=== PATIENT | female | born 1945 | race Caucasian/White ===

== ENCOUNTER → 2016-05-11 | Outpatient (CLI) | payer OTHER ==
[~2016-05-11] MED LIST: ALPR-411 PO; ASPEC81 PO; ATEN50TA8 PO; CRS10 PO; CYCL10TA6 PO; EFFSR150 PO; EYE VITAMIN PO; IRON SUPPLEMENT PO; LEVO1TAB33 PO; MULT-506 PO; OMEG10007 PO; PRAM1TAB52 PO; PRCUNK PO; STLS; VENL150C PO; VENL75CA PO; VITAMIN D PO; [UNRECOGNIZED DRUG - MIXTURE] PO; [UNRECOGNIZED DRUG - OTHER] PO
== END | disposition home or self-care (01) ==
LOC: C.RDSM 16:40
PROVIDERS: ATTEND Physical Medicine & Rehabilitation Sports Medicine
DX: G56.01 Carpal tunnel syndrome, right upper limb (principal)

== ENCOUNTER → 2016-05-21 | Outpatient (CLI) | payer OTHER ==
[~2016-05-21] MED LIST changes: -ALPR-411 PO; -ASPEC81 PO; -CRS10 PO; -EFFSR150 PO; -EYE VITAMIN PO; -IRON SUPPLEMENT PO; -MULT-506 PO; -OMEG10007 PO; -PRCUNK PO; -STLS
--- NOTE | 2016-05-21 14:45 | DIAGNOSTIC IMAGING REPORT ---
CHEST 2 VIEWS ROUTINE CLINICAL HISTORY: PRE OP TESTING COMPARISON STUDY: 09/12/2008 FINDINGS: The bones soft tissues and hemidiaphragms are normal. The cardiomediastinal silhouette is normal. The lungs are clear. The pulmonary vasculature is normal. IMPRESSION: Negative chest. Electronically signed by: Teodoro Newsome M.D. 05/21/2016 2:43 PM Dictated Date/Time: 05/21/2016 2:43 PM
== END | disposition home or self-care (01) ==
LOC: C.RDSM 14:15
PROVIDERS: ATTEND Physical Medicine & Rehabilitation Sports Medicine
DX: Z01.811 Encounter for preprocedural respiratory examination (principal)

== ENCOUNTER → 2016-06-09 | Day surgery (SDC) | payer OTHER ==
[2016-05-19 13:41] VITALS: Ht 154.9 cm; Wt 81.8 kg
[~2016-06-09] VITALS: Ht 154.9 cm; Wt 81.8 kg
[~2016-06-09] MED LIST changes: +ATROPINE SULFATE 0.1 MG/ML 5ML SYR IV PRN; +BUPIVACAINE 0.5 % 5 MG/1 ML MPF 30ML VIAL ONE; +CEFAZOLIN 2000 MG/60 ML D5W IV SCH; +DEXAMETHASONE SOD INJ 4 MG/ML VIAL IV PRN; +DEXAMETHASONE SOD INJ 4 MG/ML VIAL ONE; +EpHEDrine SULFATE 50MG/5ML SYR ONE; +EpHEDrine SULFATE INJ 50 MG/ML AMP IV PRN; +FENTANYL CITRATE INJ 50 MCG/1 ML 2 ML VIAL IV PRN; +FENTANYL CITRATE INJ 50 MCG/1 ML 2 ML VIAL ONE; +GLYCOPYRROLATE INJ 0.2 MG/ML VIAL ONE; +KETOROLAC TROMETHAMINE 30 MG/ML VIAL IV. PRN; +LABETALOL HCL IV 5 MG/ML 20ML IV PRN; +LACTATED RINGER'S 1000ML 1,000 ML IV SCH; +LIDO 2%/EPINEPHRINE 1:100000 20 ML VIAL INFIL ONE; +LIDOCAINE HCL 1% MPF 2 ML VIAL ONE; +LIDOCAINE HCL 2% 2 ML VIAL (20MG/ML) ONE; +LIDOCAINE HCL 2% LOCAL 20 ML VIAL ONE; +METOCLOPRAMIDE HCL INJ 5 MG/ML 2 ML VIAL IV PRN; +MIDAZOLAM HCL 1 MG/ML 2ML VIAL ONE; +MoRPHine SULFATE 10 MG/ML CARP/VIAL IV PRN; +ONDANSETRON INJ 2 MG/ML 2 ML VIAL IV PRN; +ONDANSETRON INJ 2 MG/ML 2 ML VIAL ONE; +PHENYLEPHRINE 100MCG/ML 5ML SYR IV PRN; +PROPOFOL IV EMULSION 10 MG/ML 20 ML VIAL IV ONE; +ROPIVACAINE 0.5% 5 MG/ML 30 ML VIAL ONE; +SODIUM CHLORIDE 0.9% 1000ML 1,000 ML IV SCH
--- NOTE | 2016-06-09 06:51 | History & Physical Bridge Note ---
H&P Re-Evaluation Bridge Note: I have examined the patient, reviewed the History & Physical and in the interval since the performance of the History & Physical I have noted the following changes of clinical significance: No changes noted
--- NOTE | 2016-06-09 06:53 | Discharge Instructions ---
Discharge Instructions Date of Service Jun 09, 2016. Visit Reason for Visit: Right Forearm/Wrist Median Nerve Compression Discharge Discharge Diagnosis / Problem: same Discharge Goals Goal(s): Decrease discomfort, Improve function Medications Stopped Medications Name(s): na Restart Stopped Medication(s): use all scripts as directed Activity Recommendations Activity Limitations: as noted below Lifting Limitations: until after follow-up appointment Exercise/Sports Limitations: until after follow-up appointment May Resume Sexual Activity: when tolerated Shower/Bathe: keep incision dry Driving or Machine Use: resume 3 days after discharge Anesthesia . Post Anesthesia Instructions: If you have had General Anesthesia or IV Sedation: * Do not drive today. * Resume driving when surgeon permits. * Do not make important decisions or sign legal documents today. * Call surgeon for: 1. Temperature elevations greater than 101 degrees F. 2. Uncontrollable pain. 3. Excessive bleeding. 4. Persistent nausea and vomiting. 5. Medication intolerance (nausea, vomiting or rash). * For nausea and vomiting use only clear liquids such as: tea, soda, bouillon until nausea subsides, then gradually increase diet as tolerated. * If you have any concerns or questions, call your surgeon's office. If physician is unavailable and it is an emergency, call 911 or go to the nearest emergency room. . Instructions / Follow-Up Instructions / Follow-Up The following are instructions to follow after minor hand surgery. ACTIVITY RECOMMENDATIONS: * Minimize activity until your first visit after surgery. * No excessive walking, jogging, sports or laboring. * Return to activity is individualized. Most patients are able to return to everyday activities within 2 weeks. * Return to sports or intensive labor usually occurs at 1-2 months. * DRIVING: Driving may be resumed when you feel you have adequate pain control and use of the hand. * BATHING: You may shower or sponge-bathe immediately after surgery. The dressing will need to be covered with a plastic bag or plastic wrap until the dressing is changed on the fourth or fifth day after surgery. Once the dressing has been changed on the fourth or fifth day after surgery, you may shower and get the incision wet. * Wash with regular soap and water. * Do not bathe (submerge the incision), soak, swim or use a hot tub until the incision is completely healed over with normal skin and the doctor has given the OK to proceed. * There is no need to apply any ointments, powders or salves to your incision. * Do not apply alcohol or hydrogen peroxide directly to the incision. Diluted peroxide (50:50 mixture with sterile saline) may be used to clean dried blood from around the incision area. WORK/SCHOOL: * You may return to sedentary work or school when you are feeling comfortable. This is usually 3-7 days after surgery. * Expect increased discomfort with increased activity. Continue to elevate and ice the hand as much as possible. DIET: * Resume previous diet. MEDICATIONS: * You will have a prescription for pain medication and an anti-inflammatory medication after surgery. Use the pain pills for severe pain and the anti-inflammatory for less severe pain. * Once the pain pills have run out, try to use the anti-inflammatory. If this is not effective then contact the office for assistance. * The pain medication may cause nausea, constipation and sleepiness. You should see how they affect you before driving or similar activity. * The anti-inflammatory may cause stomach upset and bleeding. If this occurs, let your doctor know immediately . * Some patients may need blood clot prevention. This can be done with either a pill or a simple shot. Your doctor will advise you on when to begin these medications and how to take them. * Do not take aspirin or other anti-inflammatory products (i.e. Advil or Aleve ) if taking blood thinner medication. * Take a stool softener like Colace or a stimulant like Senokot to prevent constipation. SPECIAL CARE INSTRUCTIONS: ICE: * Do not apply ice directly to the skin. * Use a thin dressing or stockinet between the skin and ice bag. The dressing in place after surgery will suffice. * Apply ice for 20-30 minutes and repeat every 2-4 hours. This is especially important for the first 3-7 days after surgery. * Once the pain improves, use ice as needed. ELEVATION: * Keep your hand elevated at or above the level of your heart as much as possible. * Expect some increased discomfort and swelling if you allow your hand to hang down for any length of time. DRESSING: * Your dressing will be changed 4-5 days after surgery by the physical therapist or physician's assistant hvac mechanic. Leave your dressing intact until this time. * You may then change your dressing daily with clean dry gauze or Band-aids and a soft wrap or stockinet. * Always wash your hands prior to touching the incision area. * Once the stitches are removed, you may leave the wound open to air or cover with a thin bandage. * There is no need to apply any ointments, powders or salves to your incision. * Expect some bloody drainage for the first few days after surgery. * Leave the tape strips in place (if present) for 5-7 days. * The initial dressing after surgery may become soaked with blood or fluid which is normal. You may reinforce your dressing with clean, dry gauze as needed. BRACE: * Bracing is generally not needed after routine hand surgery. THERAPY: * Physical therapy may be prescribed after your surgery. * For carpal tunnel and trigger digit surgery you may begin moving your fingers and wrist immediately after surgery as tolerated. * Be careful to not overuse. * Once the sutures are removed, further range of motion exercises can be performed. * Hand incisions may be very sensitive for a few months after surgery so avoid excessive pressure on the incision. If necessary, use a padded weightlifters' glove. * You may massage the incision with skin cream to make it less sensitive and reduce scarring. * Hand strength usually returns with normal use. * If needed, squeezing a soft sponge or Play-dough may help. * Your doctor will recommend physical therapy if necessary. PROBLEMS/QUESTIONS: * If you have any problems such as severe pain, numbness, tingling or high fevers or if you have any questions, please contact the office at [phone]. * It is not uncommon to have some numbness and tingling after the surgery especially if you have had a nerve block done. This should gradually improve over the first 1- 2 days. If this persists longer or worsens then contact the office. FOLLOW UP VISIT: * If not already scheduled, please call the office at to schedule follow-up appointments for approximately 10 days, 6 weeks and 3 months after surgery. Diet Recommendations Recommended Home Diet: resume previous diet Procedures Procedures Performed: median nerve decompression right upper extremity forearm/wrist Pending Studies Studies pending at discharge: no Medical Emergencies . Who to Call and When: Medical Emergencies: If at any time you feel your situation is an emergency, please call 911 immediately. . Non-Emergent Contact Non-Emergency issues call your: Specialist Call Non-Emergent contact if: temperature is above 101.5 . . "Provider Documentation" section prepared by Jesus Rao.
--- NOTE | 2016-06-09 09:54 | [facility] Post Operative Brief Note ---
Immediate Operative Summary Operative Date Jun 09, 2016. Pre-Operative Diagnosis Right Forearm/Wrist Open Median Nerve Compression Post-Operative Diagnosis Same Procedure(s) Performed Right Forearm/Wrist Open Median Nerve Decompression, Carpal Tunnel Release Surgeon Dr Rao Filter Press Tender Head Surgeon(s) Karen Valdez PA-C Estimated Blood Loss Trace Findings nerve entrapment see op note Fluids (cc crystalloids) 1000cc Specimens None Drains none Anesthesia LMA Complication(s) None Disposition Recovery Room / PACU
--- NOTE | 2016-06-09 10:06 | OPERATIVE REPORT ---
DATE OF OPERATION: 06/09/2016 PREOPERATIVE DIAGNOSIS: Median nerve entrapment syndrome, right forearm and wrist, right upper extremity. POSTOPERATIVE DIAGNOSIS: Same. OPERATION PERFORMED: Extensive decompression of the median nerve including the pronator teres deep and superficial head and the sublimis tendon as well as the carpal tunnel on the right upper extremity. SURGEON: Dr. Rao. LAUNDROMAT MANAGER: Jose Valdez PA-C. No resident or fellow available. PERIOPERATIVE SITUATION: Medically cleared female with intractable numbness, tingling, weakening of the upper extremity with EMG nerve conduction revealing entrapment both on the forearm up at the pronator teres as well as the wrist. She does have a history of wrist injury and wrist fusion. PROCEDURE: The patient appropriately identified, site verified, consent verified, 2 grams of Ancef confirmed as being given. The right upper extremity was prepped and draped in usual routine fashion. Tourniquet inflated to 250 mmHg after exsanguination of limb with a rubber Esmarch bandage for a total of 55 minutes. A curvilinear incision was made proximally in the forearm, full thickness flaps raised, care taken to protect the cutaneous nerves. A brachial artery was identified as well as the median nerve just above the elbow was then dissected down to this and then the lacertus fibrosis released. This was then dissected down into the pronator and the pronator deep head then released, the long head was then Z lengthened and then repaired with 0 Vicryl. The nerve was then tracked down into the sublimis arcade and this was released. Good decompression was obtained. The anterior interosseous nerve was seen coming off the radial side of the median nerve and was visible for approximately 4-5 cm. This indicated total length of decompression of the nerve. There were multiple vascular leashes that were clipped proximally as well. This really decompressed the nerve nicely. This wound was then irrigated. Tourniquet was deflated. At the end of the case there was no bleeding, it was closed with 2-0 subcutaneous Vicryl and running nylon 3-0 stitch. The carpal tunnel was then released through a standard incision. Sharp dissection carried through skin and blunt dissection down to the fascia. This was then incised under direct vision. The transverse carpal ligament identified and released from approximately 1.5 cm proximal hook of the hamate to the superficial palmar arch. Good decompression obtained. The floor of the carpal canal had no masses. This wound was irrigated and closed with horizontal 3-0 nylon mattresses and Dermabond. The wounds were then dressed with Xeroform bulky dressing, Mika bandage and Coban. The patient was then transferred to recovery room in satisfactory condition having tolerated the procedure well. Estimated blood loss was trace, 1,000 mL of fluid. I attest to the content of the Intraoperative Record and any orders documented therein. Any exceptions are noted below. MTDD
[2016-06-09 11:03] VITALS: TEMP 36.7
[2016-06-09 11:22] VITALS: BP 137/74; O2SAT 94
--- NOTE | 2016-06-09 11:31 | Anesthesia Progress Nt - [facility] ---
Anesthesia Post Op Note Date & Time Jun 09, 2016 at 11:31 Vital Signs Pain Intensity: 5 Vital Signs Past 12 Hours Date Time Temp Pulse Resp B/P Pulse Ox O2 Delivery O2 Flow Rate FiO2 06/09/16 11:22 78 18 137/74 94 Room Air 06/09/16 11:03 36.7 72 20 156/81 93 Room Air 06/09/16 10:47 77 16 95 06/09/16 10:47 75 16 06/09/16 10:47 36.6 06/09/16 10:44 148/83 06/09/16 10:42 75 16 06/09/16 10:42 75 16 94 06/09/16 10:39 147/89 06/09/16 10:37 77 15 97 06/09/16 10:37 77 15 06/09/16 10:35 143/77 06/09/16 10:32 78 15 06/09/16 10:32 77 15 88 06/09/16 10:29 150/95 06/09/16 10:27 78 14 06/09/16 10:27 79 14 92 06/09/16 10:24 132/88 06/09/16 10:22 78 14 06/09/16 10:22 80 14 92 06/09/16 10:19 152/87 06/09/16 10:17 82 20 99 06/09/16 10:17 83 20 06/09/16 10:14 156/93 06/09/16 10:12 89 18 96 06/09/16 10:12 88 18 06/09/16 10:09 160/95 06/09/16 10:07 85 16 99 06/09/16 10:07 86 16 06/09/16 10:04 149/91 06/09/16 10:02 86 16 98 06/09/16 10:02 86 16 06/09/16 09:59 157/90 06/09/16 09:57 84 27 06/09/16 09:57 83 27 99 06/09/16 09:56 37.3 83 16 141/92 97 Diffusion Mask 6 06/09/16 07:05 36.4 62 20 139/79 99 Room Air Notes Mental Status: alert / awake / arousable, participated in evaluation Pt Amnestic to Procedure: Yes Nausea / Vomiting: adequately controlled Pain: adequately controlled Airway Patency, RR, SpO2: stable & adequate BP & HR: stable & adequate Hydration State: stable & adequate Anesthetic Complications: no major complications apparent
--- NOTE | 2016-06-09 14:36 | OPERATIVE REPORT ---
DATE OF OPERATION: 06/09/2016 PREOPERATIVE DIAGNOSIS: Right forearm and wrist median nerve entrapment. POSTOPERATIVE DIAGNOSIS: Right forearm and wrist, same. PROCEDURE: Right forearm and wrist decompression of the median nerve of the forearm as well as carpal tunnel. SURGEON: Dr. Rao. JEWEL STRIPPER: Jose Valdez PA-C. HISTORY OF PRESENT ILLNESS: This 71-year-old white female presented to the office with complaints of intractable numbness and tingling in the right forearm and wrist. EMG was obtained, confirming entrapment at the forearm as well as the wrist. She elected to proceed with surgical intervention after being educated about potential risks and outcomes. OPERATION: The patient was taken to the operating room, where she was given general anesthesia. She was prepped and draped in the usual sterile fashion. Please see Dr. Rao's operative report for specifics of the procedure. I was present for the entire case from initial patient positioning through final wound closure. Assistance was provided in tissue retraction, hemostasis, and final wound closure. The patient was taken to the recovery room in satisfactory condition. I attest to the content of the Intraoperative Record and any orders documented therein. Any exceptio ns are noted below.
== END | disposition home or self-care (01) ==
LOC: X.SURG 06:49
PROVIDERS: ATTEND Physical Medicine & Rehabilitation Sports Medicine
DX: G56.01 Carpal tunnel syndrome, right upper limb (principal); I34.1 Nonrheumatic mitral (valve) prolapse; J43.9 Emphysema, unspecified; M19.90 Unspecified osteoarthritis, unspecified site; K21.9 Gastro-esophageal reflux disease without esophagitis; F32.9 Major depressive disorder, single episode, unspecified; K44.9 Diaphragmatic hernia without obstruction or gangrene; M54.12 Radiculopathy, cervical region; G25.81 Restless legs syndrome; Z90.49 Acquired absence of other specified parts of digestive tract; Z96.659 Presence of unspecified artificial knee joint

== ENCOUNTER → 2017-02-25 | Outpatient (CLI) | payer OTHER ==
[~2017-02-25] MED LIST changes: -ATROPINE SULFATE 0.1 MG/ML 5ML SYR IV PRN; -BUPIVACAINE 0.5 % 5 MG/1 ML MPF 30ML VIAL ONE; -CEFAZOLIN 2000 MG/60 ML D5W IV SCH; -DEXAMETHASONE SOD INJ 4 MG/ML VIAL IV PRN; -DEXAMETHASONE SOD INJ 4 MG/ML VIAL ONE; -EpHEDrine SULFATE 50MG/5ML SYR ONE; -EpHEDrine SULFATE INJ 50 MG/ML AMP IV PRN; -FENTANYL CITRATE INJ 50 MCG/1 ML 2 ML VIAL IV PRN; -FENTANYL CITRATE INJ 50 MCG/1 ML 2 ML VIAL ONE; -GLYCOPYRROLATE INJ 0.2 MG/ML VIAL ONE; -KETOROLAC TROMETHAMINE 30 MG/ML VIAL IV. PRN; -LABETALOL HCL IV 5 MG/ML 20ML IV PRN; -LACTATED RINGER'S 1000ML 1,000 ML IV SCH; -LEVO1TAB33 PO; -LIDO 2%/EPINEPHRINE 1:100000 20 ML VIAL INFIL ONE; -LIDOCAINE HCL 1% MPF 2 ML VIAL ONE; -LIDOCAINE HCL 2% 2 ML VIAL (20MG/ML) ONE; -LIDOCAINE HCL 2% LOCAL 20 ML VIAL ONE; -METOCLOPRAMIDE HCL INJ 5 MG/ML 2 ML VIAL IV PRN; -MIDAZOLAM HCL 1 MG/ML 2ML VIAL ONE; -MoRPHine SULFATE 10 MG/ML CARP/VIAL IV PRN; -ONDANSETRON INJ 2 MG/ML 2 ML VIAL IV PRN; -ONDANSETRON INJ 2 MG/ML 2 ML VIAL ONE; -PHENYLEPHRINE 100MCG/ML 5ML SYR IV PRN; -PROPOFOL IV EMULSION 10 MG/ML 20 ML VIAL IV ONE; -ROPIVACAINE 0.5% 5 MG/ML 30 ML VIAL ONE; -SODIUM CHLORIDE 0.9% 1000ML 1,000 ML IV SCH
--- NOTE | 2017-02-25 14:59 | DIAGNOSTIC IMAGING REPORT ---
BILATERAL KNEES 4 VIEWS INCLUDING BILATERAL STANDING AP VIEWS AND BILATERAL SUNRISE VIEWS CLINICAL HISTORY: Bilateral knee pain COMPARISON STUDY: No previous studies for comparison. FINDINGS: On the right, there are postsurgical changes of a total right knee arthroplasty and patellar resurfacing. There are no acute fractures. There is no periprosthetic lucency. On the left, there are advanced osteoarthritic changes with near total cartilaginous loss medially. There are medial osteophytes. There are dorsal patellar spurs. There are no acute fractures. There is no erosive disease. IMPRESSION: 1. No acute fractures 2. Postsurgical changes of a total right knee arthroplasty 3. Advanced osteoarthritic changes within the left knee Electronically signed by: Min Rosenbaum M.D. 02/25/2017 2:58 PM Dictated Date/Time: 02/25/2017 2:56 PM
== END | disposition home or self-care (01) ==
LOC: C.RDSM 12:50
PROVIDERS: ATTEND Physician Assistant
DX: M17.12 Unilateral primary osteoarthritis, left knee (principal); Z98.890 Other specified postprocedural states

== ENCOUNTER 2018-06-08 07:11 | Inpatient (IN) ==
--- NOTE | 2018-05-13 15:49 | PAT Medication Instructions ---
Medication Instructions Date of Service May 13, 2018 Home Medications atenolol 25 mg PO DAILY atorvastatin 20 mg PO DAILY cholecalciferol (vitamin D3) 1,000 unit PO DAILY cyclobenzaprine 10 mg PO DAILY PRN levothyroxine 50 mcg PO QAM magnesium 250 mg PO DAILY pantoprazole [Protonix] 40 mg PO DAILY PRN pramipexole [Mirapex] 0.125 mg PO HS trazodone 50 mg PO HS venlafaxine [Effexor XR] 225 mg PO QAM STOP taking 24 hours before surgery venlafaxine [Effexor XR] 225 mg PO QAM DO NOT take the morning of surgery cholecalciferol (vitamin D3) 1,000 unit PO DAILY cyclobenzaprine 10 mg PO DAILY PRN magnesium 250 mg PO DAILY Take morning of surgery With a small sip of water, OTHERWISE NOTHING TO EAT OR DRINK AFTER MIDNIGHT: atenolol 25 mg PO DAILY atorvastatin 20 mg PO DAILY levothyroxine 50 mcg PO QAM pantoprazole [Protonix] 40 mg PO DAILY PRN (if needed) venlafaxine [Effexor XR] 225 mg PO QAM Take evening before surgery cyclobenzaprine 10 mg PO DAILY PRN (if needed) pantoprazole [Protonix] 40 mg PO DAILY PRN (if needed) trazodone 50 mg PO HS Other Notes If you have any questions please call us at [phone] or [phone] or [phone] or [phone]
--- NOTE | 2018-05-16 11:44 | Anesthesiology Consultation ---
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 Patient "asymptomatic." Evidence of remote hemorrhage. Recommend repeating MRI prior to surgery. 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 "Elective surgery and general anesthesia are NOT known to increase the risk of rupture.. the risk of clarence-operative rupture is very low so knee replacement surgery and clarence-opreative anti-coagulation can be pursued with low overall risk of neurological morbidity." - PCP= 05/26/18= is patient medically cleared for surgery-- "YES" - Cardio= 06/02/18= "low cardiac risk for knee replacement." Chart Review Chart Review: Acceptable Risk for Surgery and Patient seen in Pre Admission Testing Teaching & Discussion Pre-Anesthesia Teaching/Discussion Notes: Instructed NPO after midnight before surgery,except medications with 15 cc of water. Medication instructions provided according to the PAT guidelines. History Surgery Operation Date: 06/08/18 10:40 Proposed Procedures p Left Total Knee Arthroplasty - Jesus Rao MD Height/Weight Height: 5 ft 2 in Weight: 83.5 kg Allergies Allergy/AdvReac Type Severity Reaction Status Date / Time tetracycline Allergy Intermediate RASH Verified 05/09/18 08:47 aspirin Allergy Unknown CANNOT Verified 05/09/18 08:47 TAKE DUE TO CAVERNOMA bethanechol AdvReac Intermediate PROFUSE Verified 05/09/18 08:47 SWEATING paroxetine AdvReac Mild GI UPSET Verified 05/09/18 08:47 propoxyphene AdvReac Unknown TACHYCARDIA Verified 05/09/18 08:47 sertraline AdvReac Unknown SLEEPLESSNE Verified 05/09/18 08:47 SS Medications Home Medications Medication Instructions Recorded Confirmed Last Taken atenolol 25 mg PO DAILY 05/09/18 05/09/18 Unknown atorvastatin 20 mg PO DAILY 05/09/18 05/09/18 Unknown cholecalciferol (vitamin D3) 1,000 unit PO DAILY 05/09/18 05/09/18 Unknown [Vitamin D3] cyclobenzaprine 10 mg PO DAILY PRN 05/09/18 05/09/18 Unknown levothyroxine 50 mcg PO QAM 05/09/18 05/09/18 Unknown magnesium 250 mg PO DAILY 05/09/18 05/09/18 Unknown pantoprazole [Protonix] 40 mg PO DAILY PRN 05/09/18 05/09/18 Unknown pramipexole [Mirapex] 0.125 mg PO HS 05/09/18 05/09/18 Unknown trazodone 50 mg PO HS 05/09/18 05/09/18 Unknown venlafaxine [Effexor XR] 225 mg PO QAM 05/09/18 05/09/18 Unknown Past Medical History Medical History Anxiety COPD (chronic obstructive pulmonary disease) STABLE Cavernoma ARTERIOVENOUS CAVERNOMA- FOLLOWS WITH NEURO (LEENA) Depression GERD (gastroesophageal reflux disease) CONTROLLED High cholesterol Hypertension Macular degeneration Mitral valve prolapse REMOTE DX PER PATIENT; NO RECENT ECHO Obesity Osteoarthritis Restless leg syndrome Urinary incontinence Past Family History Family History Sister Family history of diabetes mellitus Past Surgical History Surgical History Hx of decompression of ulnar nerve RIGHT Hx of exploratory laparotomy Hx of hand surgery LEFT Hx of hernia repair Hx of total knee replacement RIGHT Past Anesthesia History No Hx of Anesthesia Complications (EXCEPT PONV X 1 EPISODE) and No Family Hx of Anesthesia Complications History of PONV Yes (X1 EPISODE) Motion Sickness Screening History of Motion Sickness: No Social History Smoking Status: Never smoker Do You Dip or Chew Tobacco: No Hx Alcohol Use: No Hx Substance Use: No Exercise / Class Metabolic Activity III < 4 Walking/Shop/Light housework Review of Systems Chronic cough "stable." Patient denies chest pain, shortness of breath, wheezing, palpitations. Physical Exam Vital Signs VITALS BP 135/83 P 65 TEMP 98.6 SP02 95%RA RESP 18 PHYSICAL Full neck and c-spine range of motion. Full TMJ range of motion. TMD 3.5 finger breaths Mallampati Score 3 Dentition: partial upper Lungs: clear throughout to auscultation Cardiac: regular rate and rhythm, no murmurs noted Spine: normal Carotid arteries: negative bruit Extremities: no edema Short neck* Testing Electrocardiogram Date: 05/16/[address]/TWA, consider anterolateral ischemia (no significant change compared to 09/2017 S EKG; lateral leads now appear nonspecific TWA)- similar findings on 2008 [facility] EKG; subsequent stress test done 06/20/13. Chest X-Ray Date: 05/16/18 Findings: + NAD Small hiatal hernia. No acute process. Stress Test Date: 06/20/13 Type: nuclear (LEXISCAN) No reversible defect noted to suggest ischemia. Stress EKG uninterpretable due to baseline abnormalities. EF 69%. 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 Mild cerebral vollume loss, may be sequela of chronic microvascular ischemia. Laboratory Results 05/16/18 12:02 05/16/18 12:02 Blood Type A Positive 05/16/18 12:02 Antibody Screen NEGATIVE 05/16/18 12:02 PT 10.6 Seconds (9.0-12.0) 05/16/18 12:02 INR 1.0 (0.9-1.1) 05/16/18 12:02 APTT 27.4 Seconds (21.0-31.0) 05/16/18 12:02 Urine Color Yellow 05/16/18 12:02 Urine Appearance Clear (Clear) 05/16/18 12:02 Urine pH 6.5 (4.5-7.5) 05/16/18 12:02 Ur Specific [place] 1.016 (1.000-1.030) 05/16/18 12:02 Urine Protein Negative (Negative) 05/16/18 12:02 Urine Glucose (UA) Negative (Negative) 05/16/18 12:02 Urine Ketones Negative (Negative) 05/16/18 12:02 Urine Nitrite Negative (Negative) 05/16/18 12:02 Ur Leukocyte Esterase Trace (Negative) H 05/16/18 12:02 Urine WBC (Auto) 1-5 /hpf (0-5) 05/16/18 12:02 Urine RBC (Auto) 5-10 /hpf (0-4) H 05/16/18 12:02 U Hyaline Cast (Auto) 0 /lpf (0-5) 05/16/18 12:02 U Epithel Cells (Auto) 10-20 /lpf (0-5) H 05/16/18 12:02 Urine Bacteria (Auto) Negative (Negative) 05/16/18 12:02
--- NOTE | 2018-05-16 12:32 | XRay Report ---
XR chest Pre-admission PA/Lat CLINICAL HISTORY: pat preoperative evaluation COMPARISON STUDY: No previous studies for comparison. FINDINGS: Small hiatal hernia. Diaphragms are smooth. Lungs are clear. IMPRESSION: Small hiatal hernia. No acute process. The above report was generated using voice recognition software. It may contain grammatical, syntax or spelling errors. Electronically signed by: Teodoro Newsome M.D. 05/16/2018 12:31 PM
[2018-05-16 13:04] LABS: Basophils # (auto) 0.03 K/uL (0-0.2); Basophils % (auto) 0.6 %; Eosinophils % (auto) 1.9 %; Hematocrit (blood only) 39.7 % (37-47); Hemoglobin 12.6 g/dL (12.0-16.0); Immature Granulocytes # (auto) 0.02 K/uL (0.00-0.02); Immature Granulocytes % (auto) 0.4 %; Lymphocytes # (auto) 1.93 K/uL (1.2-3.4); Lymphocytes % (auto) 37.3 %; Mean Corpuscular Hgb Conc 31.7 g/dL (32-36); Mean Corpuscular Volume 86.9 fL (80-100); Mean Platelet Volume 9.9 fL (7.4-10.4); Monocytes # (auto) 0.35 K/uL (0.11-0.59); Monocytes % (auto) 6.8 %; Neutrophils # (auto) 2.74 K/uL (1.4-6.5); Platelet Count 214 K/uL (130-400); RDW Coefficient of Variation 13.8 % (11.5-14.5); RDW Standard Deviation 43.8 fL (36.4-46.3); Red Blood Count 4.57 M/uL (4.2-5.4); White Blood Count 5.17 K/uL (4.8-10.8)
[2018-05-16 13:10] LABS: Appearance Urine Clear (Clear); Bacteria Urine Automated Negative (Negative); Bilirubin Urine Negative (Negative); Blood Urine Negative (Negative); Cast Urine Automated 0 /lpf (0-5); Color Urine Yellow; Glucose Urine UA Negative (Negative); Ketones Urine Negative (Negative); Leukocyte Esterase Urine Trace (Negative); Nitrite Urine Negative (Negative); Protein Urine Negative (Negative); Specific Gravity Urine 1.016 (1.000-1.030); Urobilinogen Urine Negative (Negative); pH Urine 6.5 (4.5-7.5)
[2018-05-16 13:15] LABS: BUN Creatinine Ratio 24.5 (10-20); Calcium 8.9 mg/dl (8.5-10.1); Creatinine Clr Calc Pharmacy 58.7 ml/min; Est GFR (African American) 79.9; Potassium 4.1 mmol/L (3.5-5.1)
[2018-05-16 13:17] LABS: Partial Thromboplastin Time 27.4 Seconds (21.0-31.0); Prothrombin Time 10.6 Seconds (9.0-12.0)
--- NOTE | 2018-05-18 16:04 | History and Physical Report ---
DATE OF ADMISSION: 06/08/2018 DATE OF SURGERY: 06/08/2018. CHIEF COMPLAINT: Left knee pain. HISTORY OF PRESENT ILLNESS: This 73-year-old white female presents to the office with complaints of left knee pain that has been ongoing for several years. Left knee has been getting worse with time. She was initially hoping to delay knee surgery, but feels that her knee pain is too severe at this point. She would like to proceed. No specific injury. Pain is worse with weightbearing. It is affecting her ADLs. No numbness or tingling. She denies any catching or locking. No buckling. She previously had a right total knee arthroplasty done several years ago and has done well with that. Preoperative imaging has been obtained. PAST MEDICAL HISTORY: Significant for adrenal adenoma, general anxiety disorder, osteoarthritis, mitral valve prolapse, emphysema, GERD, hiatal hernia, cervical radiculopathy, history of depression, macular degeneration, chronic low back pain, restless leg syndrome, uterine fibroids, hypertension, elevated lipids, and hypothyroidism. PAST SURGICAL HISTORY: Appendectomy, D and C, urethral dilatation, right knee total knee arthroplasty, scaphoidectomy with proximal row carpectomy of the right wrist, basal joint reconstruction, right arm median nerve decompression in May 2016, breast biopsy, colonoscopy, partial colectomy with ileocolostomy, cystocele repair, herniorrhaphy. ALLERGIES: KNOWN ALLERGY TO URECHOLINE, AMITRIPTYLINE, DARVOCET, TETRACYCLINE, ZOCOR, PAXIL, ZOLOFT, AND ASPIRIN. CURRENT MEDICATIONS: Atenolol 50 mg half tablet p.o. daily, Effexor 100 mg 3 tablets p.o. daily, Flexeril 10 mg p.o. at bedtime, Synthroid 50 mcg p.o. daily, pramipexole 0.25 mg half tablet p.o. at bedtime, Protonix daily, trazodone 50 mg p.o. at bedtime, vitamin D3 daily. FAMILY HISTORY: Significant for cancer, diabetes, heart disease, stroke, silicosis, and melanoma. SOCIAL HISTORY: The patient is employed doing personal care. No tobacco use, no ETOH use. . REVIEW OF SYSTEMS: A total of 10 systems were reviewed and are significant only for above-stated conditions. PHYSICAL EXAMINATION: GENERAL: Well-developed, well-nourished elderly white female in no acute distress. Sitting in a chair. Alert and oriented. SKIN: Warm and dry with fair turgor. No rashes or lesions. No ecchymosis or erythema. HEENT: Normocephalic, atraumatic. Eyes PERRLA, EOMI. Nares patent bilaterally without turbinate enlargement. Oropharynx without erythema or exudate. No lesions noted. Uvula midline. Oral mucosa moist. Partial upper denture noted. HEART: RRR. No MGR. LUNGS: Clear to auscultation bilaterally. No crackles, rhonchi or wheezing. Good air movement. ABDOMEN: Mildly obese. Bowel sounds present x4, soft, nontender. No organomegaly. No masses. MUSCULOSKELETAL: Left knee evaluation reveals a lack of 3-4 degrees of terminal extension. Flexion to 100 degrees. Strength is 5/5 with fair quad tone. Varus alignment. Mild effusion. Stable collateral ligaments. No defect in the patellar tendon or quadriceps tendon. There is pain with palpation over the medial joint line. There is also pain posteriorly as well as anteriorly. No pain with palpation over the lateral joint line. Ambulatory with an antalgic gait. NEUROLOGIC: Cranial nerves II through XII are intact. Gross sensation is intact across the lower extremities by soft touch. Peripheral pulses are 2+. DATA: Radiographic imaging previously obtained shows end-stage DJD of the left knee. Periarticular osteophytes, subchondral sclerosis, and joint space narrowing are all present. She is nearly bone on bone in the medial compartment. IMPRESSION: Left knee end-stage degenerative joint disease. PLAN: Informed written consent has been obtained to proceed with left total knee arthroplasty. Postoperative prescription for Percocet and Coumadin will be provided at discharge from the hospital. Anticipate discharge to home with home health services or outpatient services. The patient already has a walker and cane available. Preoperative lab work, EKG, and chest x-ray have been ordered. Medical clearance has been requested from her PCP, Dr. Garcia as well as her neurologist, Dr. Randolph. 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
[~2018-06-08 07:11] MED LIST changes: -ATEN50TA8 PO; +CEFAZOLIN 2000MG 2,000 MG/15 ML SYR IV SCH; -CYCL10TA6 PO; +LR 500ML BOLUS, THEN 15ML/HR IV SCH; +LR 60ML/HR IV SCH; -PRAM1TAB52 PO; +ROPIVACAINE 0.5% HCL/PF 150 MG, BUPIVACAINE 0.5% MPF 30 ML, EPINEPHrine 0.15 MG, Ketoro... INFIL SCH; +TRANEXAMIC ACID 1,000 MG **IV Pre-op IV SCH; -VENL150C PO; -VENL75CA PO; -VITAMIN D PO; -[UNRECOGNIZED DRUG - MIXTURE] PO; -[UNRECOGNIZED DRUG - OTHER] PO
[2018-06-08] MEDS ORDERED: DEXAMETHASONE SOD INJ 4 MG/ML VIAL ONE (07:28)
[2018-06-08] MEDS ORDERED: BUPIVACAINE/EPINEPHRINE 0.5% MPF 1:200,000 30 ML VIAL ONE (07:28)
[2018-06-08] MEDS ORDERED: BUPIVACAINE 0.5 % 5 MG/1 ML PF 10ML VIAL ONE (07:28)
--- NOTE | 2018-06-08 08:34 | History & Physical Bridge Note ---
Date of Service June 08, 2018 History & Physical Bridge Note I have examined the patient, reviewed the History & Physical and in the interval since the performance of the History & Physical I have noted the following changes of clinical significance: consent verified.no changes noted
[2018-06-08] MEDS ORDERED: MIDAZOLAM HCL 1 MG/ML 2ML VIAL ONE (09:53)
[2018-06-08] MEDS ORDERED: fentaNYL citrate 100 MCG/2 ML VIAL ONE ×2 (09:53→11:10)
[2018-06-08] MEDS ORDERED: LIDOCAINE HCL 2% 2 ML VIAL/AMP(20MG/ML) INFIL ONE (09:53)
[2018-06-08] MEDS ORDERED: PROPOFOL IV EMULSION 10 MG/ML 20 ML VIAL IV ONE ×3 (09:53→09:58)
[2018-06-08] MEDS ORDERED: ONDANSETRON INJ 2 MG/ML 2 ML VIAL IV PRN ×2 (09:57→13:39)
[2018-06-08] MEDS ORDERED: ATROPINE SULFATE 0.1 MG/ML 10ML SYR IV PRN (09:57)
[2018-06-08] MEDS ORDERED: PROMETHAZINE HCL 6.25 MG in SODIUM CHLORIDE 0.9% 50 ML IV PRN (09:57)
[2018-06-08] MEDS ORDERED: ePHEDrine sulfate 50 MG/ML AMP IV PRN (09:57)
[2018-06-08] MEDS ORDERED: POVIDONE-IODINE OP SOLN 30 ML BTL ONE (10:38)
[2018-06-08] MEDS ORDERED: ORTHO JOINT ANESTHETIC ONE (10:38)
[2018-06-08] MEDS ORDERED: ONDANSETRON INJ 2 MG/ML 2 ML VIAL ONE (11:28)
[2018-06-08] MEDS ORDERED: LABETALOL HCL IV 5 MG/ML 20ML IV ONE (11:29)
[2018-06-08] MEDS ORDERED: HYDROmorphone INJ 2 MG/ML SYR/VIAL ONE (11:46)
[2018-06-08] MEDS ORDERED: GLYCOPYRROLATE 0.2 MG/ML VIAL ONE (12:05)
[2018-06-08] MEDS ORDERED: NEOSTIGMINE METHYLSULFATE 5 MG/5 ML SYR ONE (12:05)
--- NOTE | 2018-06-08 12:19 | Post Operative Brief Note ---
Immediate Post Op Note v1 Date of Surgery June 08, 2018 Pre & Post Diagnosis Operation Date: 06/08/18 10:40 Pre-Op Diagnosis: Left Knee End Stage Degenerative Joint Disease Post-Op Diagnosis: Left Knee End Stage Degenerative Joint Disease Procedure Operation Date: 06/08/18 10:40 Actual Procedures p Left Total Knee Arthroplasty(Left) - Jesus Rao MD Surgeon Jesus aRo MD Safety Belt Install[facility] Estimated Blood Loss 25 Findings Consistent with Post-Op Diagnosis
--- NOTE | 2018-06-08 12:39 | Operative Report ---
Post Operative Report Pre & Post Diagnosis Operation Date: 06/08/18 10:40 Pre-Op Diagnosis: Left Knee End Stage Degenerative Joint Disease Post-Op Diagnosis: Left Knee End Stage Degenerative Joint Disease Procedure Operation Date: 06/08/18 10:40 Actual Procedures p Left Total Knee Arthroplasty(Left) - Jesus Rao MD Surgeon JOSE Rao MD Hvac Sales Engineer [facility] Estimated Blood Loss 25 Findings Consistent with Post-Op Diagnosis Specimens see operative note Drains none Complications none Disposition Accompanied Patient To Recovery: Yes Disposition: Recovery Room Indications This 73-year-old white female presented to the office with complaints of intractable left knee pain. She had tried conservative care measures including activity modification, oral pain medication, and injection therapy, without lasting improvement. She elected to proceed with surgical intervention after being educated about potential risks and outcomes. Preoperative imaging was obtained. Description of Procedure Patient was administered a regional block and then taken to the operating room where she was given general anesthesia. She was prepped and draped in the usual sterile fashion. Please see Dr. Rao's operative report for specifics of the procedure. I was present for the entire case from initial patient positioning through final wound closure. Assistance was provided in tissue retraction, hemostasis, trial implant placement, final implant placement, and final wound closure. Patient was taken to the recovery room in satisfactory co ndition. I attest to the content of the Intraoperative Record and any orders documented therein. Any exceptions are noted below.
[2018-06-08] MEDS: fentaNYL citrate 100 MCG/2 ML VIAL IV PRN ×2 (12:59→13:04)
--- NOTE | 2018-06-08 13:06 | Progress Note ---
DATE: 06/08/2018 SUBJECTIVE: Postop check status post left total knee replacement. The patient is doing well. Denies any chest pain, shortness of breath, fever, chills, nausea, vomiting, or headache. OBJECTIVE: Vital signs are stable. She is afebrile. Neurovascular check femoral sciatic nerve is normal. Postop x-rays look excellent. ASSESSMENT: Doing well status post left total knee replacement. Continue with care pathway.
--- NOTE | 2018-06-08 13:26 | XRay Report ---
XR knee LT 2V routine CLINICAL HISTORY: Surgical Post Op COMPARISON: Left knee radiographs December 30, 2017. FINDINGS: Alignment of the total left knee arthroplasty is anatomic. There is no fracture or unexpec asael radiopaque foreign body. Skin asif are present. IMPRESSION: Expected findings following total left knee arthroplasty. Electronically signed by: Valdez Knox M.D. 06/08/2018 1:24 PM
--- NOTE | 2018-06-08 13:34 | Anesthesiology Progress Note ---
Date of Service June 08, 2018 Anesthesia Post Procedure Vital Signs Vital Signs: Temp Pulse Pulse Resp BP BP Pulse Ox 06/08/18 13:25 36.6 C 64 18 158/81 H 95 06/08/18 13:15 36.6 C 64 18 156/82 H 95 06/08/18 13:05 64 18 158/84 H 95 06/08/18 12:55 66 18 160/89 H 95 06/08/18 12:45 63 18 162/87 H 93 06/08/18 12:37 36.9 C 69 18 184/80 H 93 06/08/18 07:58 37 C 68 18 185/106 H 97 Notes Mental Status: alert / awake / arousable Patient Amnestic to Procedure: Yes Nausea / Vomiting: adequately controlled Pain: adequately controlled Airway Patency, RR, SpO2: stable & adequate BP & HR: stable & adequate Hydration State: stable & adequate Anesthetic Complications: no major complications apparent
[2018-06-08] MEDS ORDERED: SODIUM CHLORIDE 0.9% 1000ML 1,000 ML IV SCH (13:39)
[2018-06-08] MEDS ORDERED: HYDROmorphone INJ 0.5 MG/0.5 ML SYR IV PRN (13:39)
[2018-06-08] MEDS ORDERED: METOCLOPRAMIDE HCL INJ 5 MG/ML 2 ML VIAL IV PRN (13:39)
[2018-06-08] MEDS ORDERED: NALOXONE HCL 0.4 MG/1 ML VIAL/CARP IV PRN (13:39)
[2018-06-08] MEDS ORDERED: MAGNESIUM HYDROXIDE SUSP 30 ML UDC PO PRN (13:39)
[2018-06-08] MEDS ORDERED: ALUMINUM/MAGNESIUM SUSP 30 ML UDC PO PRN (13:39)
[2018-06-08] MEDS ORDERED: OXYCODONE HCL IR 5 MG TAB (IMMEDIATE RELEASE) PO PRN (13:39)
[2018-06-08] MEDS ORDERED: DiphenhydrAMINE HCL 50 MG/ML VIAL IV PRN (13:39)
[2018-06-08] MEDS ORDERED: PANTOprazole 40 MG TAB PO PRN (13:39)
[2018-06-08] MEDS ORDERED: BISACODYL 10 MG SUPP PR PRN (13:39)
[2018-06-08] MEDS ORDERED: ORTHO WARFARIN NOMOGRAM SCH (14:00)
--- NOTE | 2018-06-08 15:14 | Operative Report ---
DATE OF OPERATION: 06/08/2018 SURGEON: Jesus Rao MD. RETAIL GIFT CARD MERCHANDISING: Jose aVldez PA-C. No resident or fellow available. PREOPERATIVE DIAGNOSES: Osteoarthritis with varus flexion deformity, left knee. POSTOPERATIVE DIAGNOSES: Osteoarthritis with varus flexion deformity, left knee. OPERATION PERFORMED: Cemented left total knee replacement. PERIOPERATIVE SITUATION: Medically cleared female with intractable knee pain has been followed for years, had the other side done years ago, now wants this side done. Consent obtained. All risks and benefits described. She is aware of them. SUMMARY OF IMPLANTS: Size 2 posterior cruciate substituting femur, size 2 mobile bearing tray, oval dome 3 peg patella size 38 poly insert, size two 10 mm thick posterior cruciate substituting 2 bags of [place] G cement. ESTIMATED BLOOD LOSS: 25 mL. CRYSTALLOID: Per Anesthesia. DESCRIPTION OF PROCEDURE: The patient appropriately identified, site verified, consent verified. Antibiotic confirmed as being given. TXA confirmed as being given. The left lower extremity was prepped and draped in usual routine fashion. The patient had a 4-5 degree flexion contracture and a varus alignment. Once the tourniquet was inflated to 300 mmHg after exsanguination of limb with a rubber Esmarch bandage for a total of about 47 minutes, midline exposure was utilized. Parapatellar arthrotomy performed. Synovectomy completed. Osteophytes resected. Soft tissue release was performed medially and posteriorly. The distal femur was then resected 14 mm, the proximal tibia 4 mm, the extension gap was excellent. The femur was sized to between a 2.5 and a 2, so it was measured 2.5 cut 2. There was no notching, it was excellent. The flexion gap was excellent. The box cut was then made and size 2 femur fit well. The tibia was then broached and reamed to a size 2 to match the femur and a good coverage of the tibia. The trial spacer with 10 mm spacer revealed everything to be excellent in full range of motion including mid range stability. The patella tracked well. The patella was then resected leaving 16 mm and a 38 trial button placed. The tract was excellent. The wound was then injected with Orthomix and then irrigated with Betadine and Pulsavac. Trial implants were removed. The wound irrigated definitively with Betadine and Pulsavac and the permanent cemented into position. After 12 minutes, the tourniquet deflated. After 14 minutes, the knee was inspected. There was no need for any cement removal. The wound was irrigated with one final time with Betadine and Pulsavac and then the permanent liner seated. The knee reduced and then closed with #2 Vicryl, 2-0 Vicryl, stainless steel clips and soft tissue dressing. The patient tolerated the procedure well. DVT prophylaxis will be with Coumadin. Bone pathology pending on the resected areas. I attest to the content of the Intraoperative Record and any orders documented therein. Any exception s are noted below.
[2018-06-08] MEDS ORDERED: WARFARIN SOD 5 MG TAB PO SCH (16:00)
[2018-06-08] MEDS: ACETAMINOPHEN 500 MG TAB PO SCH ×3 (16:22→23:55)
[2018-06-08] MEDS: KETOROLAC TROMETHAMINE 15 MG/ML VIAL IV SCH ×2 (16:24→21:46)
[2018-06-08] MEDS: FERROUS GLUCONATE 324 MG TAB PO SCH (16:24)
[2018-06-08] MEDS: CEFAZOLIN 2000MG 2,000 MG/15 ML SYR IV SCH (18:36)
[2018-06-08] MEDS ORDERED: TRANEXAMIC ACID 1,000 MG in 0.9 % SODIUM CHLORIDE 100 ML IV SCH (18:43)
[2018-06-08] MEDS ORDERED: TRAZODONE HCL 50 MG TAB PO SCH (21:00)
[2018-06-08] MEDS ORDERED: PRAMIPEXOLE DIHYDROCHLO 0.25 MG TAB PO SCH (21:00)
[2018-06-08] MEDS ORDERED: SENNA 8.6 MG TAB PO SCH (21:00)
[2018-06-08] MEDS: DOCUSATE SODIUM 100 MG CAP PO SCH (21:45)
[2018-06-08] MEDS ORDERED: Nursing to Pharmacy Communication ONE (22:19)
[2018-06-09] MEDS: CEFAZOLIN 2000MG 2,000 MG/15 ML SYR IV SCH (02:47)
[2018-06-09] MEDS: KETOROLAC TROMETHAMINE 15 MG/ML VIAL IV SCH ×2 (02:47→11:07)
[2018-06-09] MEDS ORDERED: LEVOTHYROXINE SODIUM 50 MCG TABLET PO SCH (06:30)
[2018-06-09 06:38] LABS: Hematocrit (blood only) 31.3 % (37-47); Hemoglobin 9.9 g/dL (12.0-16.0); Mean Corpuscular Hgb Conc 31.6 g/dL (32-36); Mean Corpuscular Volume 86.7 fL (80-100); Mean Platelet Volume 9.7 fL (7.4-10.4); Platelet Count 170 K/uL (130-400); RDW Coefficient of Variation 13.9 % (11.5-14.5); RDW Standard Deviation 44.3 fL (36.4-46.3); Red Blood Count 3.61 M/uL (4.2-5.4); White Blood Count 9.35 K/uL (4.8-10.8)
[2018-06-09 06:55] LABS: INR 1.2 (0.9-1.1); Prothrombin Time 11.9 Seconds (9.0-12.0)
[2018-06-09 07:05] LABS: BUN Creatinine Ratio 18.3 (10-20); Calcium 8.2 mg/dl (8.5-10.1); Creatinine Clr Calc Pharmacy 53.6 ml/min; Est GFR (African American) 73.5; Est GFR (Non-African American) 63.4; Potassium 4.1 mmol/L (3.5-5.1)
--- NOTE | 2018-06-09 07:10 | Progress Note ---
DATE: 06/09/2018 SUBJECTIVE: Postop check status post left total knee replacement. The patient is doing well. Denies any problems. She denies chest pain, shortness of breath, fever, chills, nausea, vomiting or headache. OBJECTIVE: Vital signs are stable. She is afebrile. Neurovascular check femoral sciatic nerve is normal. Hematocrit stable at 31. INR 1.2. ASSESSMENT: Doing well. Discharge today after PT, OT. Discharge on 4 mg Coumadin. Follow up in 2 weeks for staple removal.
--- NOTE | 2018-06-09 07:56 | Anesthesiology Progress Note ---
Date of Service June 09, 2018 Anesthesia Post Procedure Vital Signs Vital Signs: Temp Pulse Pulse Resp BP BP Pulse Ox 06/09/18 07:35 36.5 C 75 16 115/71 94 06/09/18 02:47 36.9 C 70 16 128/73 91 06/08/18 22:56 37.0 C 70 16 146/67 H 91 06/08/18 20:00 36.7 C 73 20 137/66 91 06/08/18 16:31 36.8 C 66 20 121/87 93 06/08/18 15:51 36.8 C 67 12 153/82 H 92 06/08/18 14:53 36.6 C 69 20 144/85 H 97 06/08/18 14:35 65 161/91 H 06/08/18 13:45 36.6 C 68 14 156/88 H 96 06/08/18 13:25 36.6 C 64 18 158/81 H 95 06/08/18 13:15 36.6 C 64 18 156/82 H 95 06/08/18 13:05 64 18 158/84 H 95 06/08/18 12:55 66 18 160/89 H 95 06/08/18 12:45 63 18 162/87 H 93 06/08/18 12:37 36.9 C 69 18 184/80 H 93 06/08/18 07:58 37 C 68 18 185/106 H 97 Pain Intensity Left Knee: Pain Intensity: 2 Notes Mental Status: alert / awake / arousable and participated in evaluation Patient Amnestic to Procedure: Yes Nausea / Vomiting: adequately controlled Pain: adequately controlled Airway Patency, RR, SpO2: stable & adequate BP & HR: stable & adequate Hydration State: stable & adequate Neuraxial Anesthesia: sensory block resolved Anesthetic Complications: Pt Satisfied with anesthetic care
[2018-06-09] MEDS ORDERED: dexAMETHasone 10 MG in SYRINGE 0 ML IV SCH (08:00)
[2018-06-09] MEDS: ACETAMINOPHEN 500 MG TAB PO SCH (08:11)
[2018-06-09] MEDS: DOCUSATE SODIUM 100 MG CAP PO SCH (08:12)
[2018-06-09] MEDS: FERROUS GLUCONATE 324 MG TAB PO SCH (08:12)
[2018-06-09] MEDS ORDERED: VENLAFAXINE HCL XR 150 MG CAPXR PO SCH (09:00)
[2018-06-09] MEDS ORDERED: VENLAFAXINE HCL XR 75 MG CAPXR PO SCH (09:00)
[2018-06-09] MEDS ORDERED: MULTIVITAMIN TAB PO SCH (09:00)
[2018-06-09] MEDS ORDERED: ATENOLOL 25 MG TABLET PO SCH (09:00)
[2018-06-09] MEDS ORDERED: ATORVASTATIN 20 MG TAB PO SCH (09:00)
--- NOTE | 2018-06-09 09:29 | Discharge Summary ---
CHIEF COMPLAINT: Left knee pain. HISTORY OF PRESENT ILLNESS: A 73-year-old female admitted for elective left total knee replacement. Hospital course has been uneventful. She denies any chest pain, shortness of breath, fever, chills, nausea, vomiting or headache. PAST MEDICAL HISTORY: Remarkable for adrenal adenoma and general anxiety disorder, osteoarthritis, mitral valve prolapse, emphysema, GERD, hiatal hernia, cervical radiculopathy, history of depression, history of macular degeneration, chronic low back pain, restless leg syndrome, uterine fibroids, hypertension, elevated lipids and hypothyroidism. Also has AVM of her brain. PAST SURGICAL HISTORY: Remarkable for appendectomy, urethral dilatation, right total knee replacement, scaphoidectomy, proximal carpectomy of the wrist, basal joint reconstruction, right median nerve decompression, breast biopsy, colonoscopy, partial colectomy with ileostomy and repair, herniorrhaphy. ALLERGIES: URECHOLINE, AMITRIPTYLINE, DARVOCET, TETRACYCLINE, ZOCOR, PAXIL, ZOLOFT AND ASPIRIN. PREADMISSION MEDICATIONS: Include atenolol, Effexor, Flexeril, Synthroid, pramipexole, Protonix, trazodone. Also discharged on Coumadin, keep INR 1.8-2.2. Discharged on 4 mg. Check INR on Wednesday. P.r.n. pain medication, see prescription. FAMILY HISTORY: Remarkable for cancer, diabetes, heart disease, stroke, silicosis and melanoma. 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 No tobacco or alcohol use. She is . REVIEW OF SYSTEMS: Noncontributory. ASSESSMENT: Overall, doing well status post left total knee replacement. He will be discharged to home with home health. Case management involved. Discharge on 4 mg of Coumadin. Keep INR 1.8-2.2. Follow up in 2 weeks for staple removal. HAYDER
[2018-06-09] MEDS ORDERED: WARFARIN SOD 5 MG TAB PO ONE (10:00)
[2018-06-09 11:10] VITALS: BP 128/65; PULSE 66; TEMP 98.6; O2SAT 92
== END 2018-06-09 13:51 | disposition home health service (06) | DRG 469 ==
LOC: ASU 07:11 → 3N 12:46